=== PATIENT | female | born 1950 | race Caucasian/White ===

== ENCOUNTER 2016-12-02 14:54 | Emergency (ER) | payer OTHER ==
[~2016-12-02] VITALS: Ht 160 cm; Wt 113.6 kg
[~2016-12-02 14:54] MED LIST: ASPI81TA2 PO; DOCU-119 PO; METF500T4 PO; PANT40TA25 PO; PRAV20TA4 PO
[2016-12-02] MEDS ORDERED: SODIUM CHLORIDE 0.9% 1,000 ML IV ONE (17:16)
[2016-12-02] MEDS ORDERED: INSULIN REGULAR, HUMAN 100 UNITS/ML IVP ONE (17:30)
[2016-12-02 17:38] LABS: BASOPHILS % (AUTO) 0.3 % (0.0-2.0); EOSINOPHILS % (AUTO) 0.4 % (1.0-6.0); HEMATOCRIT 38.1 % (36-46); HEMOGLOBIN 12.3 g/dL (12.0-16.0); LYMPHOCYTES # (AUTO) 1.6 K/uL (1.0-4.8); LYMPHOCYTES % (AUTO) 14.9 % (22.0-44.0); MEAN CORPUSCULAR HGB CONC 32.2 G/dL (31.0-37.0); MEAN CORPUSCULAR VOLUME 90 fL (80-100); MONOCYTES # (AUTO) 0.6 K/uL (0.1-1.0); MONOCYTES % (AUTO) 5.7 % (2.0-9.0); NEUTROPHILS # (AUTO) 8.5 K/uL (1.8-7.7); NEUTROPHILS % (AUTO) 78.7 % (40.0-70.0); PLATELET COUNT (AUTO) 229 K/uL (150-450); RED BLOOD CELL COUNT(AUTO) 4.23 MIL/uL (4.00-5.20); RED CELL DISTRIBUTION WIDTH 14.3 % (11.5-14.5); WHITE BLOOD COUNT (AUTO) 10.8 K/uL (4.5-11.0)
[2016-12-02 17:49] LABS: CALCIUM, TOTAL 8.9 mg/dL (8.8-10.5); CREATININE 1.05 mg/dL (0.60-1.30); POTASSIUM 4.8 mmol/L (3.5-5.1)
[2016-12-02 17:55] LABS: ALBUMIN 2.9 g/dL (3.4-5.0); BILIRUBIN,TOTAL 0.6 mg/dL (0.1-1.0); TOTAL PROTEIN, SERUM 6.7 g/dL (6.4-8.2)
[2016-12-02 18:37] LABS: GLUCOSE,POINT OF CARE 187 MG/DL (70-110)
[2016-12-02 19:18] LABS: APPEARANCE,URINE CLEAR (CLEAR); GLUCOSE, URINE (UA) >=1000 mg/dL (NEGATIVE); KETONES,URINE NEGATIVE (NEGATIVE); LEUKOCYTE ESTERASE ,URINE SMALL (NEGATIVE); OCCULT BLOOD,URINE NEGATIVE (NEGATIVE); PH,URINE 5.5 (5.0-8.0); PROTEIN,URINE NEGATIVE (NEGATIVE)
[2016-12-02 19:23] LABS: ADD UA MICROSCOPIC YES; RBC,URINE 0-2 /HPF (0-2); SQUAMOUS EPITHELIAL CELL,UR Few /LPF (None Seen)
[2016-12-02] MEDS ORDERED: APIX5TAB PO (21:00)
[2016-12-02] MEDS ORDERED: ALBU8HFA IH (21:00)
[2016-12-02] MEDS ORDERED: GLIM2 PO (21:00)
[2016-12-02] MEDS ORDERED: GLIM1TAB2 PO (21:00)
[2016-12-02] MEDS ORDERED: RANI150T12 PO (21:04)
[2016-12-02] MEDS ORDERED: CARV25TA32 PO (21:04)
[2016-12-02] MEDS ORDERED: LOSA50TA37 PO (21:04)
[2016-12-02] MEDS ORDERED: AMLO5TAB66 PO (21:04)
[2016-12-02] MEDS ORDERED: FENO160T11 PO (21:04)
[2016-12-02] MEDS ORDERED: CLON.1 PO (21:04)
[2016-12-02 21:32] LABS: GLUCOSE,POINT OF CARE 174 MG/DL (70-110)
[2016-12-02 22:46] VITALS: BP 124/81
[2016-12-03 11:02] LABS: GLUCOSE,POINT OF CARE 298 MG/DL (70-110)
== END 2016-12-02 22:50 | disposition home or self-care (01) ==
LOC: EMS 14:56
DX: E11.65 Type 2 diabetes mellitus with hyperglycemia (principal); E86.0 Dehydration; I10 Essential (primary) hypertension
CPT/HCPCS: 36415; 80053; 81001; 82962; 83690; 83880; 84484; 85025; 87086; 96361; 96374; 99285; J1815; J7030

== ENCOUNTER 2017-02-06 17:13 | Emergency (ER) | payer OTHER ==
[~2017-02-06] VITALS: Ht 152.4 cm; Wt 252.0 kg
[~2017-02-06 17:13] MED LIST changes: +ALBU8HFA IH; +AMLO5TAB66 PO; +APIX5TAB PO; -ASPI81TA2 PO; +CARV25TA32 PO; +CLON.1 PO; -DOCU-119 PO; +FENO160T11 PO; +GLIM1TAB2 PO; +GLIM2 PO; +LOSA50TA37 PO; -METF500T4 PO; -PANT40TA25 PO; +RANI150T12 PO
[2017-02-06 17:27] LABS: GLUCOSE,POINT OF CARE 202 MG/DL (70-110)
[2017-02-06] MEDS ORDERED: HYDROCODONE/ACETAMINOPHEN 5-325 MG TABLET PO ONE (18:00)
[2017-02-06 18:16] LABS: BASOPHILS % (AUTO) 0.4 % (0.0-2.0); EOSINOPHILS % (AUTO) 2.2 % (1.0-6.0); HEMATOCRIT 28.5 % (36-46); HEMOGLOBIN 9.6 g/dL (12.0-16.0); LYMPHOCYTES # (AUTO) 1.7 K/uL (1.0-4.8); LYMPHOCYTES % (AUTO) 36.1 % (22.0-44.0); MEAN CORPUSCULAR HEMOGLOBIN 30.6 pg (26.0-34.0); MEAN CORPUSCULAR HGB CONC 33.6 G/dL (31.0-37.0); MEAN CORPUSCULAR VOLUME 91 fL (80-100); MONOCYTES # (AUTO) 0.6 K/uL (0.1-1.0); MONOCYTES % (AUTO) 12.1 % (2.0-9.0); NEUTROPHILS # (AUTO) 2.3 K/uL (1.8-7.7); NEUTROPHILS % (AUTO) 49.2 % (40.0-70.0); PLATELET COUNT (AUTO) 199 K/uL (150-450); RED BLOOD CELL COUNT(AUTO) 3.14 MIL/uL (4.00-5.20); RED CELL DISTRIBUTION WIDTH 14.1 % (11.5-14.5); WHITE BLOOD COUNT (AUTO) 4.6 K/uL (4.5-11.0)
[2017-02-06 18:33] LABS: INR 1.1 (0.9-1.1)
[2017-02-06 18:41] LABS: B-TYPE NATRIURETIC PEPTIDE 97 pg/mL (0-100)
[2017-02-06 18:53] LABS: ANION GAP 10 mmol/L (8-16); CALCIUM, TOTAL 8.9 mg/dL (8.8-10.5); CARBON DIOXIDE 25 mmol/L (22-29); CHLORIDE 105 mmol/L (98-107); CREATININE 1.14 mg/dL (0.60-1.30); GLOMERULAR FILTR. RATE CALC 48 mL/min (>60); POTASSIUM 3.7 mmol/L (3.5-5.1); SODIUM SERUM 140 mmol/L (136-145); UREA NITROGEN, BLOOD 23 mg/dL (7-18)
[2017-02-06 18:59] LABS: ALANINE AMINOTRANSFERASE 30 U/L (12-78); ALBUMIN 2.9 g/dL (3.4-5.0); ASPARTATE AMINOTRANSFERASE 29 U/L (15-37); BILIRUBIN,TOTAL 0.5 mg/dL (0.1-1.0); CREATINE KINASE, TOTAL 66 U/L (26-192)
[2017-02-06 19:02] VITALS: BP 107/68
== END 2017-02-06 19:41 | disposition home or self-care (01) ==
LOC: EMS 17:15
DX: M54.5 Low back pain (principal); I10 Essential (primary) hypertension; E11.9 Type 2 diabetes mellitus without complications; Z79.01 Long term (current) use of anticoagulants
CPT/HCPCS: 82962; 93005; 99285

== ENCOUNTER 2017-09-13 15:26 | Emergency (ER) | payer OTHER ==
[~2017-09-13] VITALS: Ht 152.4 cm; Wt 106.4 kg
[~2017-09-13 15:26] MED LIST changes: +CLON-570 PO; -CLON.1 PO
[2017-09-13 15:52] LABS: GLUCOSE,POINT OF CARE 124 MG/DL (70-110)
[2017-09-13] MEDS ORDERED: HYDROCODONE/ACETAMINOPHEN 10-325 MG TABLET PO ONE (17:30)
[2017-09-13 17:36] LABS: BASOPHILS % (AUTO) 0.6 % (0.0-2.0); EOSINOPHILS % (AUTO) 4.3 % (1.0-6.0); HEMATOCRIT 32.4 % (36-46); LYMPHOCYTES # (AUTO) 2.4 K/uL (1.0-4.8); MEAN CORPUSCULAR HEMOGLOBIN 29.1 pg (26.0-34.0); MEAN CORPUSCULAR HGB CONC 33.9 G/dL (31.0-37.0); MEAN CORPUSCULAR VOLUME 86 fL (80-100); MONOCYTES # (AUTO) 0.9 K/uL (0.1-1.0); MONOCYTES % (AUTO) 11.5 % (2.0-9.0); NEUTROPHILS # (AUTO) 4.4 K/uL (1.8-7.7); NEUTROPHILS % (AUTO) 54.6 % (40.0-70.0); PLATELET COUNT (AUTO) 196 K/uL (150-450); RED BLOOD CELL COUNT(AUTO) 3.78 MIL/uL (4.00-5.20); RED CELL DISTRIBUTION WIDTH 13.1 % (11.5-14.5)
[2017-09-13 17:48] LABS: PROTHROMBIN TIME 10.9 SEC (9.4-11.6)
[2017-09-13 17:55] LABS: ANION GAP 10 mmol/L (8-16); CALCIUM, TOTAL 9.2 mg/dL (8.8-10.5); CARBON DIOXIDE 27 mmol/L (22-29); CHLORIDE 107 mmol/L (98-107); CREATININE 0.69 mg/dL (0.60-1.30); GLOMERULAR FILTR. RATE CALC > 60 mL/min (>60); GLUCOSE,RANDOM 110 mg/dL (70-110); POTASSIUM 4.6 mmol/L (3.5-5.1); SODIUM SERUM 144 mmol/L (136-145); UREA NITROGEN, BLOOD 24 mg/dL (7-18)
[2017-09-13 18:19] LABS: ALANINE AMINOTRANSFERASE 29 U/L (12-78); ALBUMIN 3.2 g/dL (3.4-5.0); ALKALINE PHOSPHATASE 99 U/L (46-116); ASPARTATE AMINOTRANSFERASE 33 U/L (15-37); BILIRUBIN,TOTAL 0.4 mg/dL (0.1-1.0); CREATINE KINASE MB 0.8 ng/mL (0-5); CREATINE KINASE, TOTAL 76 U/L (26-192)
[2017-09-13 19:08] LABS: TOTAL PROTEIN, SERUM 7.5 g/dL (6.4-8.2)
[2017-09-13 19:47] VITALS: BP 127/59
== END 2017-09-13 20:21 | disposition home or self-care (01) ==
LOC: EMS 15:32
DX: M71.21 Synovial cyst of popliteal space [Baker], right knee (principal); E11.9 Type 2 diabetes mellitus without complications; I10 Essential (primary) hypertension
CPT/HCPCS: 82962; 93005; 93971; 99285

== ENCOUNTER 2018-12-22 15:09 | Emergency (ER) | payer MEDICARE, MEDICAID ==
[~2018-12-22] VITALS: Ht 152.4 cm; Wt 113.6 kg
[~2018-12-22 15:09] MED LIST changes: -CLON-570 PO; -LOSA50TA37 PO; +LOSA50TA64 PO; -RANI150T12 PO
[2018-12-22 15:29] LABS: GLUCOSE,POINT OF CARE 126 MG/DL (70-110)
[2018-12-22] MEDS ORDERED: ATOR40TA28 PO (15:29)
[2018-12-22] MEDS ORDERED: SERT50TA12 PO (15:29)
[2018-12-22] MEDS ORDERED: METF-960 PO (15:29)
[2018-12-22] MEDS ORDERED: FERR-89 PO (15:29)
[2018-12-22] MEDS ORDERED: NITR.6 SL (15:29)
[2018-12-22] MEDS ORDERED: BECL10.62 IH (15:29)
[2018-12-22] MEDS ORDERED: GABA-529 PO (15:29)
[2018-12-22] MEDS ORDERED: ASPI-556 PO (15:29)
[2018-12-22] MEDS ORDERED: HYDR200T4 PO (15:29)
[2018-12-22 18:04] VITALS: BP 127/62
== END 2018-12-22 18:13 | disposition home or self-care (01) ==
LOC: EMS 15:10
DX: S60.012A Contusion of left thumb without damage to nail, initial encounter (principal); S60.312A Abrasion of left thumb, initial encounter; E11.9 Type 2 diabetes mellitus without complications; E78.00 Pure hypercholesterolemia, unspecified; I10 Essential (primary) hypertension; G47.30 Sleep apnea, unspecified; Z79.899 Other long term (current) drug therapy; Z88.8 Allergy status to other drugs, medicaments and biological substances; W18.39XA Other fall on same level, initial encounter; Y93.89 Activity, other specified; Y92.89 Other specified places as the place of occurrence of the external cause; Y99.8 Other external cause status

== ENCOUNTER 2019-02-14 10:32 | Day surgery (SDC) | payer MEDICARE, MEDICAID ==
[~2019-02-14] VITALS: Ht 157.5 cm; Wt 118.2 kg
[~2019-02-14 10:32] MED LIST changes: +ASPI-556 PO; +ATOR40TA28 PO; +BECL10.62 IH; -FENO160T11 PO; +FERR-89 PO; +GABA-529 PO; -GLIM1TAB2 PO; -GLIM2 PO; +HYDR200T4 PO; +METF-960 PO; +NITR0.6T11 SL; -PRAV20TA4 PO; +SERT50TA12 PO; +SODIUM CHLORIDE 0.9% 1,000 ML IV ONE
[2019-02-14] MEDS ORDERED: PROPOFOL 1% 20 ML VIAL IVP ONE (10:33)
[2019-02-14] MEDS ORDERED: SODIUM CHLORIDE 0.9% 1,000 ML IV ONE (10:39)
[2019-02-14 11:40] LABS: GLUCOMETER DEV NAME(LOC) SDS.; GLUCOSE,POINT OF CARE 132 MG/DL (70-110)
[2019-02-14] MEDS ORDERED: FentaNYL CITRATE-PF 100 MCG/2 ML VIAL ONE (12:31)
[2019-02-14] MEDS ORDERED: MIDAZOLAM HCL 5 MG/ML VIAL ONE (12:31)
== END 2019-02-14 14:40 | disposition home or self-care (01) ==
LOC: SURGERY 10:32
PROVIDERS: ATTEND Internal Medicine Gastroenterology
DX: K64.8 Other hemorrhoids (principal); R19.4 Change in bowel habit; I10 Essential (primary) hypertension; K21.9 Gastro-esophageal reflux disease without esophagitis; E11.9 Type 2 diabetes mellitus without complications; D64.9 Anemia, unspecified; F32.9 Major depressive disorder, single episode, unspecified; Z79.899 Other long term (current) drug therapy; Z98.890 Other specified postprocedural states; Z83.3 Family history of diabetes mellitus; Z88.8 Allergy status to other drugs, medicaments and biological substances; Z95.0 Presence of cardiac pacemaker; Z95.1 Presence of aortocoronary bypass graft
CPT/HCPCS: 45378; 82962; 93005; J2704; J7030; J2250; J3010